=== PATIENT | female | born 1950 | race Caucasian/White ===

== ENCOUNTER → 2017-07-29 | Outpatient (CLI) | payer MEDICARE, BC ==
--- NOTE | 2017-07-29 10:51 | US ---
EXAMINATION TYPE: US abdomen complete DATE OF EXAM: 07/29/2017 COMPARISON: NONE CLINICAL HISTORY: 66-year-old female with abdominal Pain and Bloating R14.0. Intermittent abdomen yoli n, bloating, nausea and acid reflux x 6 months TECHNIQUE: Multiple sonographic images of the abdomen are obtained. FINDINGS: Liver Length: 11.2 cm Gallbladder Wall: 0.2 cm CBD: 3.5 mm Spleen: 7.2 cm Right Kidney: 9.2 x 4.2 x 4.8 cm Left Kidney: 9.2 x 5.6 x 4.9 cm Pancreas: Suboptimal visualization of the pancreatic head and tail secondary to shadowing from bowel gas. Liver: Normal size with normal homogeneous echotexture and no focal lesion. Gallbladder: No abnormal gallbladder distention, wall thickening, pericholecystic fluid, or shadowin g calculi. Evidence for sonographic Cox's sign: yes CBD: visualized portions wnl, limited by overlying bowel gas Spleen: visualized portions wnl, limited by overlying bowel gas Right Kidney: Mild pelviectasis which may be transient. No calyceal dilatation to suggest hydronephro sis. Left Kidney: No hydronephrosis. Visualized portions wnl, limited by rib shadowing Upper IVC: wnl Abd Aorta: wnl IMPRESSION: No sonographic evidence for cholelithiasis or acute cholecystitis. Positive sonographic Cox sign c ould reflect referred pain. If further imaging evaluation of the gallbladder is indicated, HIDA scan with ejection fraction can be performed.
== END | disposition home or self-care (01) ==
LOC: RADUSWWP 09:07
PROVIDERS: ATTEND Internal Medicine Gastroenterology
DX: R14.0 Abdominal distension (gaseous) (principal)
CPT/HCPCS: 76700

== ENCOUNTER 2017-08-14 08:35 | Day surgery (SDC) | payer MEDICARE, BC ==
[2017-08-13 08:52] VITALS: BMI 24.0
[~2017-08-14 08:35] MED LIST: LACTATED RINGERS 1,000 ML IV SCH
[2017-08-14 08:54] VITALS: TEMP 97.6
[2017-08-14] MEDS ORDERED: LIDOCAINE 1% 20 ML VIAL (10MG/ML) FOR IV START INTRADERMA ONE (09:05)
[2017-08-14] MEDS ORDERED: LIDOCAINE 1% INJ 10MG/ML (20 ML MDV) ONE (09:27)
[2017-08-14] MEDS ORDERED: PROPOFOL 10 MG/ML 20 ML VIAL IV ONE (09:27)
--- NOTE | 2017-08-14 09:48 | P.PCN ---
Date of Procedure: 08/14/17 Procedure(s) Performed: Brief history: Patient is a pleasant 66-year-old white female, scheduled for an elective upper endoscopy as well as colonoscopy as a part of evaluation of pain, abdominal bloating and for screening for colorectal neoplasia. Procedure performed: Esophagogastroduodenoscopy with biopsy Colonoscopy with snare polypectomy Preoperative diagnosis: Abdominal pain/abdominal bloating Screening for colon cancer Anesthesia: MAC Procedure: After informed consent was obtained from the patient was brought into the endoscopy unit and IV sedation was administered by anesthesia under continuous monitoring. Initially upper endoscopy was done. The Olympus GF 160 video endoscope was inserted inserted into the mouth and esophagus intubated without any difficulty and was gradually advanced into the stomach and duodenum and carefully examined. The bulb and second part of the duodenum appeared normal. The scope was then withdrawn into the stomach adequately insufflated with air and upon careful examination the antrum had mild gastritis and biopsies were done from this area. Thed body, cardia and fundus appeared normal. The scope was then withdrawn into the esophagus. The GE junction was located at 40 cm to the incisors. It appeared regular with no erythema erosions or ulcerations. Rest of the esophagus appeared normal. Patient tolerated the procedure well. At this time the patient continued to remain sedation. Initial digital rectal examination was normal. Olympus CF 160 video colonoscope was then inserted into the rectum and gradually advanced to the cecum without any difficulty. Careful examination was performed as the scope was gradually being withdrawn. The prep was excellent. The cecum, appeared normal. In the ascending colon there was a 7-8 mm sessile polyp removed by snare polypectomy. The rest of the ascending colon, transverse colon, descending colon, sigmoid colon and rectum appeared normal. Sigmoid diverticula seen. Retroflexion was performed in the rectum and no lesions were noted. Patient tolerated the procedure well. Impression: 1. Upper endoscopy revealed mild antral gastritis but no evidence of esophagitis or peptic ulcer disease 2. Colonoscopy revealed 7-8 mm sessile ascending colon polyp status post polypectomy and scattered sigmoid diverticulosis. Recommendations: Findings of this examination were discussed with the patient as well as her family. She was advised to follow with the biopsy results. If the biopsy shows a tubular adenoma, she can have a repeat colonoscopy in 5 years.
[2017-08-14 10:08] VITALS: BP 100/53; PULSE 70; RESP 16
== END 2017-08-14 10:33 | disposition home or self-care (01) ==
LOC: ORWHC2ENDO 08:35
PROVIDERS: ATTEND Internal Medicine Gastroenterology
DX: Z12.11 Encounter for screening for malignant neoplasm of colon (principal); D12.2 Benign neoplasm of ascending colon; K57.30 Diverticulosis of large intestine without perforation or abscess without bleeding; K29.50 Unspecified chronic gastritis without bleeding; Z91.041 Radiographic dye allergy status; Z79.83 Long term (current) use of bisphosphonates
CPT/HCPCS: 45385; 43239; 88305; 88342; J2001; J2704

== ENCOUNTER 2018-03-23 13:14 | Emergency (ER) | payer MEDICARE, BC ==
[2018-03-23 13:33] VITALS: BP 116/57; PULSE 75; RESP 18; TEMP 97.8
--- NOTE | 2018-03-23 13:43 | ED ---
Upper Extremity HPI - General Chief Complaint: Extremity Injury, Upper Stated Complaint: rt arm injury Time Seen by Provider: 03/23/18 13:30 Source: patient, RN notes reviewed, old records reviewed Mode of arrival: ambulatory Limitations: no limitations - History of Present Illness Initial Comments: Patient is a 67-year-old female presents emergency Department with right forearm pain for one day. Reports yesterday evening she was walking her dog when police around her wrist and arm. She reports that the dog lunged forward and pulled her arm. She reports that she heard a popping sensation in her wrist. Patient states that she has pain with pronation and supination. Denies any finger pain or hand pain. No pain with flexion and extension of the wrist. No numbness or tingling. No major orthopedic surgeries. Patient is right- handed. Patient denies any recent fever, chills, shortness of breath, chest pain, back pain, abdominal pain, nausea vomiting, numbness or tingling, dysuria or hematuria, constipation or diarrhea, headaches or visual changes, or any other current symptoms - Related Data Home Medications Medication Instructions Recorded Confirmed Alendronate Sodium [Fosamax] 70 mg PO SA 08/13/17 08/13/17 Previous Rx's Medication Instructions Recorded Ibuprofen [Motrin] 600 mg PO Q8HR PRN #15 tab 03/23/18 Allergies Allergy/AdvReac Type Severity Reaction Status Date / Time Iodinated Contrast- Oral and Allergy Anaphylaxis Verified 03/23/18 13:33 IV Dye Review of Systems ROS Statement: Those systems with pertinent positive or pertinent negative responses have been documented in the HPI. ROS Other: All systems not noted in ROS Statement are negative. Past Medical History Additional Past Medical History / Comment(s): OSTEOPOROSIS. HYPOGLYCEMIA History of Any Multi-Drug Resistant Organisms: None Reported Past Surgical History: Hysterectomy Additional Past Surgical History / Comment(s): COLONOSCOPY Past Anesthesia/Blood Transfusion Reactions: Motion Sickness, Postoperative Nausea & Vomiting (PONV) Past Psychological History: No Psychological Hx Reported Smoking Status: Former smoker Past Alcohol Use History: Rare Past Drug Use History: None Reported - Past Family History Mother Family Medical History: No Reported History General Exam - General Exam Comments Initial Comments: 67-year-old female. Alert. No acute distress. Limitations: no limitations General appearance: alert, in no apparent distress Head exam: Present: atraumatic, normocephalic, normal inspection Eye exam: Present: normal appearance, PERRL, EOMI. Absent: scleral icterus, conjunctival injection, periorbital swelling ENT exam: Present: normal exam, mucous membranes moist Neck exam: Present: normal inspection Respiratory exam: Present: normal lung sounds bilaterally. Absent: respiratory distress, wheezes, rales, rhonchi, stridor Cardiovascular Exam: Present: regular rate, normal rhythm, normal heart sounds. Absent: systolic murmur, diastolic murmur, rubs, gallop, clicks Right Upper Arm exam: Present: normal inspection, full ROM Elbow exam: Present: normal inspection, full ROM Forearm Wrist exam: Present: normal inspection, tenderness (Redness over the medial distal ulna.). Absent: full ROM (She reports pain with pronation and supination over the distal ulna.), swelling, abrasion, laceration, ecchymosis, deformity Hand Wrist exam: Present: normal inspection, full ROM Neuro motor exam: Present: wrist extension intact, thumb opposition intact, thumb IP flexion intact, thumb adduction intact, fingers 2-5 abduction intact Vascular: Present: normal capillary refill Back exam: Present: normal inspection Neurological exam: Present: alert, oriented X3, CN II-XII intact Psychiatric exam: Present: normal affect, normal mood Skin exam: Present: warm, dry, intact, normal color. Absent: rash Course Vital Signs 03/23/18 13:30 Temperature 97.8 F Pulse Rate 75 Respiratory 18 Rate Blood Pressure 116/57 O2 Sat by Pulse 99 Oximetry Medical Decision Making - Medical Decision Making 67-year-old female presents emergency murmur with right forearm pain. Patient reports that she is having the pain after her dog pulled it while she was walking her dog. She reports she heard a popping sensation yesterday. Patient with pronation and supination. Patient x-rays of the wrist and forearm are completed. No signs of acute osseous abnormality. She does have some tenderness over the distal ulna. Discussed likely strained a muscle. She really has an Peter wrap. Discussed using an Peter wrap anti-inflammatory medication. Discussed icing. If symptoms continue to persist she can follow- up with education program specialist. All questions answered return parameters were discussed. - Radiology Data Radiology results: report reviewed X-rays of the forearm and wrist were normal. No fracture dislocation or other abnormality. There is a mild ulnar minus minute. Disposition Clinical Impression: Sprain of right forearm Disposition: HOME SELF-CARE Condition: Good Instructions: Wrist Sprain (ED) Additional Instructions: Patient has a follow-up with primary care provider and ortho if symptoms continue to persist. Rest, ice, and elevate extremity. Return to the emergency department if any alarming signs or symptoms occur. Return to emergency department if any alarming signs or symptoms occur. Prescriptions: Ibuprofen [Motrin] 600 mg PO Q8HR PRN #15 tab PRN Reason: Pain Is patient prescribed a controlled substance at d/c from ED?: No If prescribed controlled substance>3 days was MAPS reviewed?: No When asked, does pt state using other controlled substances?: No Referrals: Carter Sky MD [Primary Care Provider] - 1-2 days Federico Cox MD [STAFF PHYSICIAN] - 1-2 days Time of Disposition: 14:10
--- NOTE | 2018-03-23 14:00 | XR ---
EXAMINATION TYPE: XR forearm RT, XR wrist complete RT , 6 VIEWS DATE OF EXAM ORDERED: 03/23/2018 HISTORY: Pain. COMPARISON: None. FINDINGS: No long bone fracture is seen. Osseous structures about the wrist are normal. No fracture, dislocation or other acute abnormality is seen. There is a mild ulnar minus variant. IMPRESSION: NO ACUTE OSSEOUS LESION.
== END 2018-03-23 14:31 | disposition home or self-care (01) ==
LOC: EC 13:14
DX: S63.501A Unspecified sprain of right wrist, initial encounter (principal); M81.0 Age-related osteoporosis without current pathological fracture; Z87.891 Personal history of nicotine dependence; Z79.899 Other long term (current) drug therapy; Z91.041 Radiographic dye allergy status; X50.9XXA Other and unspecified overexertion or strenuous movements or postures, initial encounter; Y93.K1 Activity, walking an animal
CPT/HCPCS: 99284

== ENCOUNTER → 2018-07-15 | Outpatient (CLI) | payer MEDICARE, BC ==
[2018-07-15 12:24] VITALS: BP 110/70; PULSE 70; RESP 20
--- NOTE | 2018-07-15 14:46 | MR ---
EXAMINATION TYPE: MR brain wo/w con DATE OF EXAM: 07/15/2018 COMPARISON: None HISTORY: Gait imbalance CONTRAST: Performed utilizing 7 mL intravenous Gadavist gadolinium contrast. TECHNIQUE: Multiplanar, multiecho imaging on a 3.0 Brittni magnet is performed through the brain. Stud y is performed within 24 hours of arrival to the hospital. The craniovertebral junction is normal. The pituitary is normal. Diffusion-weighted imaging is performed. No abnormal hyperintensity is present to suggest an acute i ntracranial infarct or acute ischemic change. There is a punctate subcortical white matter change in the left frontal lobe. This is not out of prop ortion to the patient age. Signal is otherwise unremarkable. No abnormal enhancement is evident. Ventricles and sulci are appropriate for the patient age. IMPRESSIONS: 1. Normal pre and postcontrast MRI brain
== END | disposition home or self-care (01) ==
LOC: RADMRIMAIN 10:41
PROVIDERS: ATTEND Family Medicine
DX: R26.89 Other abnormalities of gait and mobility (principal)
CPT/HCPCS: 82565; 70553; A9581

== ENCOUNTER → 2019-07-03 | Outpatient (CLI) | payer MEDICARE, BC ==
--- NOTE | 2019-07-03 17:46 | BD ---
EXAMINATION TYPE: Axial Bone Density DATE OF EXAM: 07/03/2019 COMPARISON: NONE CLINICAL HISTORY: Height: 63 Weight: 147.6 FRAX RISK QUESTIONS: Alcohol (3 or more units per day): no Family History (Parent hip fracture): yes Glucocorticoids (More than 3mos): no (Ex: prednisone, prednisolone, methylprednisolone, dexamethasone, and hydrocortisone). History of Fracture in Adulthood: no Secondary Osteoporosis: 1. Type 1 Diabetes: no 2. Hyperthyroidism: no 3. Menopause before 45: yes 4. Malnutrition: no 5. Chronic liver disease: no Rheumatoid Arthritis: no Current Tobacco Use: no RISK FACTORS HISTORY OF: Family History of Osteoporosis: yes Active: yes Diet low in dairy products/other sources of calcium: yes Postmenopausal woman: age 37 MEDICATIONS: none has taken fosamax in the past Additional History: EXAM MEASUREMENTS: Bone mineral densitometry was performed using the [employer] 28 System. Bone mineral density as measured about the Lumbar spine is: ----- L1-L4(G/cm2): 1.007 T Score Values are as follows: ----- L2: -2.6 ----- L3: -0.9 ----- L4: -1.0 ----- L1-L4: -1.4 Bone mineral density : baseline Bone mineral density about the R hip (g/cm2): 0.643 Bone mineral density about the L hip (g/cm2): 0.674 T Score values are as follows: -----R Neck: -2.8 -----L Neck: -2.6 -----R Total: -2.6 -----L Total: -2.6 Bone mineral density : baseline IMPRESSION: Osteoporosis (T Score less than -2.5). There is increased fracture risk and therapy is usually indicated based on age. Re-Screen 1-2 years. NOTE: T-SCORE=SD OF THE YOUNG ADULT MEAN.
== END | disposition home or self-care (01) ==
LOC: RADBDWWP 15:35
PROVIDERS: ATTEND Family Medicine
DX: M81.0 Age-related osteoporosis without current pathological fracture (principal)
CPT/HCPCS: 77080

== ENCOUNTER → 2020-06-21 | Outpatient (CLI) | payer MEDICARE, BC ==
[2020-06-22 08:36] VITALS: BMI 25.4
== END | disposition home or self-care (01) ==
LOC: DBWHC3 13:05
PROVIDERS: ATTEND Family Medicine
DX: E78.5 Hyperlipidemia, unspecified (principal); R73.03 Prediabetes
CPT/HCPCS: 97802